=== PATIENT | female | born 1945 | race Two or more races ===

== ENCOUNTER 2022-02-19 17:39 | Inpatient (IN) | payer OTHER ==
[~2022-02-19] VITALS: Ht 160 cm; Wt 108.7 kg
[2022-02-19 19:09] LABS: Basophils # (auto) 0.1 10 ^3/uL (0-0.2); Basophils % (auto) 0.7 % (0.0-2.0); Eosinophils # (auto) 0.1 10 ^3/uL (0-0.8); Eosinophils % (auto) 0.3 % (0.0-7.0); Hematocrit 45.2 % (36.0-46.0); Hemoglobin 14.7 g/dL (12.2-16.2); Lymphocytes # (auto) 2.4 10 ^3/uL (0.4-5.4); Lymphocytes % (auto) 14.8 % (10.0-50.0); Mean Corpuscular Hemoglobin 32.4 pg (28.0-32.0); Mean Corpuscular Hgb Conc. 32.5 g/dL (32.0-36.0); Mean Corpuscular Volume 99.5 fL (80.0-100.0); Monocytes # (auto) 1.4 10 ^3/uL (0-1.3); Monocytes % (auto) 8.6 % (0.0-12.0); Neutrophils # (auto) 12.3 10 ^3/uL (1.6-8.6); Neutrophils % (auto) 75.6 % (37.0-80.0); Red Blood Cells 4.54 10^6/uL (4.0-5.20); Red Cell Distribution Width 15.1 % (11.8-14.3); White Blood Cell 16.3 10^3/uL (4.4-10.8)
[2022-02-19 19:26] LABS: Albumin 3.1 g/dL (3.4-5.0); BUN/Creatinine Ratio 11.4; Calcium 8.5 mg/dL (8.5-10.1); Potassium 3.7 mmol/L (3.5-5.1)
[2022-02-19 19:29] LABS: Bilirubin, Total 1.6 mg/dL (0.2-1.0); Total Protein 6.4 g/dL (6.4-8.2)
[2022-02-19 19:56] LABS: Urine Bacteria FEW /hpf (None Seen); Urine Blood Negative /uL (Negative); Urine Mucus FEW (None Seen); Urine Specific Gravity 1.037 (1.001-1.035); Urine WBC 10 /hpf (0 - 5)
[2022-02-19] MEDS ORDERED: ONDANSETRON HCL 4 MG/2 ML VIAL IV ONE (20:15)
[2022-02-19] MEDS ORDERED: MORPHINE SULFATE 4 MG/ML SYR/VIAL IV ONE (20:15)
[2022-02-19] MEDS ORDERED: PANTOPRAZOLE 40 MG/10 ML VIAL INJ IV ONE (20:15)
[2022-02-19] MEDS ORDERED: SODIUM CHLORIDE 0.9% 500 ML IVB ONE (20:15)
[2022-02-19 20:54] LABS: Amylase 19 U/L (25-115); Lipase 64 U/L (73-393)
[2022-02-19 21:00] VITALS: BP 115/63
[2022-02-19] MEDS ORDERED: PIPERACILLIN-TAZOB 3.375GM 100 ML IV ONE (21:15)
[2022-02-20] MEDS ORDERED: SOD CHL 0.45% 1,000 ML IV ONE
[2022-02-20] MEDS ORDERED: ONDANSETRON HCL 4 MG/2 ML VIAL IV PRN
[2022-02-20] MEDS ORDERED: MORPHINE SULFATE INJ 2 MG/ml SYRG IV PRN ×2
[2022-02-20] MEDS ORDERED: NITROGLYCERIN 0.4 MG SL TAB SL PRN
[2022-02-20] MEDS: ACCU-CHEK COMFORT CURVE STRIP VI SCH ×4 (00:40→17:30)
[2022-02-20] MEDS: InsuLIN REG 1unit/0.01ml Soln (100units/ml) SC SCH ×4 (00:40→18:00)
[2022-02-20 04:26] VITALS: BP 128/68
[2022-02-20 04:52] LABS: Basophils # (auto) 0.1 10 ^3/uL (0-0.2); Basophils % (auto) 0.7 % (0.0-2.0); Eosinophils # (auto) 0.2 10 ^3/uL (0-0.8); Eosinophils % (auto) 1.5 % (0.0-7.0); Hematocrit 44.7 % (36.0-46.0); Hemoglobin 14.7 g/dL (12.2-16.2); Lymphocytes # (auto) 1.7 10 ^3/uL (0.4-5.4); Lymphocytes % (auto) 13.6 % (10.0-50.0); Mean Corpuscular Hemoglobin 32.9 pg (28.0-32.0); Mean Corpuscular Hgb Conc. 32.8 g/dL (32.0-36.0); Mean Corpuscular Volume 100.3 fL (80.0-100.0); Monocytes % (auto) 8.3 % (0.0-12.0); Neutrophils # (auto) 9.2 10 ^3/uL (1.6-8.6); Neutrophils % (auto) 75.9 % (37.0-80.0); Nucleated Red Blood Cells % 0.6 %; Red Blood Cells 4.45 10^6/uL (4.0-5.20); Red Cell Distribution Width 15.2 % (11.8-14.3); White Blood Cell 12.1 10^3/uL (4.4-10.8)
[2022-02-20 05:07] LABS: INR 1.07 (0.9-1.15)
[2022-02-20 05:15] LABS: Albumin 3.2 g/dL (3.4-5.0); Calcium 8.4 mg/dL (8.5-10.1); Potassium 3.8 mmol/L (3.5-5.1)
[2022-02-20 05:19] LABS: BUN/Creatinine Ratio 14.3; Bilirubin, Total 2.2 mg/dL (0.2-1.0)
[2022-02-20] MEDS: IPRATROPIUM BROM 0.5 MG/2.5ML INH SOL NEB SCH ×3 (06:00→19:31)
[2022-02-20] MEDS: ALBUTEROL SULF 2.5 MG/0.5ML(0.5%) NEB SOLN NEB SCH ×3 (06:00→19:31)
[2022-02-20] MEDS: metroNIDAZOLE 500MG/100ML 100 ML IV SCH ×3 (06:21→21:35)
[2022-02-20] MEDS ORDERED: DEXTROSE (50%) 50ML SYRG IV PRN ×2 (09:45)
[2022-02-20] MEDS: SODIUM CHLORIDE 0.9% 1,000 ML IV SCH ×2 (12:03→18:05)
[2022-02-20] MEDS: CIPROFLOXACIN 400MG/200ML 200 ML IV SCH (12:04)
[2022-02-20] MEDS: PANTOPRAZOLE 40 MG/10 ML VIAL INJ IV SCH (12:04)
[2022-02-20] MEDS ORDERED: BACL10TA PO (16:50)
[2022-02-20] MEDS ORDERED: HYDR-4611 (16:50)
[2022-02-20] MEDS ORDERED: METF-869 PO (16:50)
[2022-02-20] MEDS ORDERED: LIDO4CRE22 TOP (16:50)
[2022-02-20] MEDS ORDERED: GLUC-105 (16:50)
[2022-02-20] MEDS ORDERED: POTA20TA24 (16:50)
[2022-02-20] MEDS ORDERED: ZOLP5TAB5 PO (16:50)
[2022-02-20] MEDS ORDERED: SPIR25TA8 PO (16:50)
[2022-02-20] MEDS ORDERED: OMEP-445 (16:50)
[2022-02-20 17:00] VITALS: BP 129/63
[2022-02-20] MEDS: D5W/SOD CHL 0.45% 1,000 ML IV SCH (17:45)
[2022-02-20] MEDS ORDERED: METOPROLOL TARTRATE 25 MG TAB PO ONE (21:15)
[2022-02-21] MEDS: IPRATROPIUM BROM 0.5 MG/2.5ML INH SOL NEB SCH ×4 (00:04→18:50)
[2022-02-21] MEDS: ALBUTEROL SULF 2.5 MG/0.5ML(0.5%) NEB SOLN NEB SCH ×4 (00:04→18:50)
[2022-02-21] MEDS: ACCU-CHEK COMFORT CURVE STRIP VI SCH ×4 (00:14→18:45)
[2022-02-21 05:00] VITALS: BP 98/55
[2022-02-21] MEDS: InsuLIN REG 1unit/0.01ml Soln (100units/ml) SC SCH ×4 (05:12→18:45)
[2022-02-21] MEDS: metroNIDAZOLE 500MG/100ML 100 ML IV SCH ×3 (05:12→22:26)
[2022-02-21 06:53] LABS: Basophils # (auto) 0 10 ^3/uL (0-0.2); Basophils % (auto) 0.5 % (0.0-2.0); Eosinophils # (auto) 0.2 10 ^3/uL (0-0.8); Eosinophils % (auto) 2.8 % (0.0-7.0); Hematocrit 39.4 % (36.0-46.0); Hemoglobin 12.7 g/dL (12.2-16.2); Lymphocytes # (auto) 1.4 10 ^3/uL (0.4-5.4); Lymphocytes % (auto) 18.8 % (10.0-50.0); Mean Corpuscular Hemoglobin 32.1 pg (28.0-32.0); Mean Corpuscular Hgb Conc. 32.1 g/dL (32.0-36.0); Mean Corpuscular Volume 99.8 fL (80.0-100.0); Monocytes # (auto) 0.8 10 ^3/uL (0-1.3); Monocytes % (auto) 10.6 % (0.0-12.0); Neutrophils % (auto) 67.3 % (37.0-80.0); Nucleated Red Blood Cells % 0.3 %; Red Blood Cells 3.95 10^6/uL (4.0-5.20); Red Cell Distribution Width 15.1 % (11.8-14.3); White Blood Cell 7.4 10^3/uL (4.4-10.8)
[2022-02-21 07:06] LABS: Albumin 2.4 g/dL (3.4-5.0); Calcium 7.9 mg/dL (8.5-10.1)
[2022-02-21 07:10] LABS: BUN/Creatinine Ratio 15.5; Bilirubin, Total 0.9 mg/dL (0.2-1.0); Total Protein 4.7 g/dL (6.4-8.2)
[2022-02-21] MEDS: D5W/SOD CHL 0.45% 1,000 ML IV SCH (07:30)
[2022-02-21 08:30] VITALS: BP 125/67
[2022-02-21 09:00] VITALS: BP 125/67
[2022-02-21] MEDS: CIPROFLOXACIN 400MG/200ML 200 ML IV SCH (09:13)
[2022-02-21] MEDS: PANTOPRAZOLE 40 MG/10 ML VIAL INJ IV SCH (09:21)
[2022-02-21] MEDS ORDERED: ONDANSETRON HCL 4 MG/2 ML VIAL ONE (10:05)
[2022-02-21] MEDS ORDERED: fentaNYL CITRATE 100 MCG/2 ML VL ONE (10:05)
[2022-02-21] MEDS ORDERED: DexAMETHasone SOD PHOS 10MG/1ML VIAL INJ ONE (10:05)
[2022-02-21] MEDS ORDERED: GLYCOPYRROLATE 0.2 MG/ML 1ML VIAL ONE (10:05)
[2022-02-21] MEDS ORDERED: ROCURONIUM 10MG/ML 10ML VIAL IV ONE (10:05)
[2022-02-21] MEDS ORDERED: SODIUM CHLORIDE LOCK 20 ML ONE (10:05)
[2022-02-21] MEDS ORDERED: MIDAZOLAM HCL 2MG/2ML 2ml VIAL (1mg/ml) ONE (10:05)
[2022-02-21] MEDS ORDERED: NEOSTIGMINE 1 MG/ML INJ (10mg/10ML VIAL) ONE (10:05)
[2022-02-21] MEDS ORDERED: MEPERIDINE HCL (50 MG/ML) 1 ML VIAL ONE (10:05)
[2022-02-21] MEDS: BUPIVACAINE HCL 0.25% P/F 10 ML VIAL ONE ×2 (10:25→11:20)
[2022-02-21] MEDS ORDERED: METOCLOPRAMIDE HCL 5MG/ml INJ 2ml VIAL IV PRN (10:45)
[2022-02-21] MEDS ORDERED: ACCU-CHEK COMFORT CURVE STRIP VI ONE (10:45)
[2022-02-21] MEDS ORDERED: HYDROmorphone HCL 2 MG/ML VL/or syr IV PRN (10:45)
[2022-02-21] MEDS ORDERED: MORPHINE SULFATE 4 MG/ML SYR/VIAL IV PRN (10:45)
[2022-02-21] MEDS ORDERED: SUGAMMADEX 200mg/2ml Vial (100MG/ML) IV ONE (11:38)
[2022-02-21] MEDS ORDERED: ONDANSETRON HCL 4 MG/2 ML VIAL IV PRN (11:45)
[2022-02-21] MEDS: HYDROmorphone HCL 2 MG/ML VL/or syr IV PRN ×5 (12:11→23:09)
[2022-02-21] MEDS: D5W/SOD CHL 0.45%/KCL 20MEQ 1,000 ML IV SCH (14:49)
[2022-02-21] MEDS ORDERED: METR500T PO (16:01)
[2022-02-21] MEDS ORDERED: LEVO500T31 PO (16:01)
[2022-02-21] MEDS ORDERED: hydrALAZINE HCL 20 MG/ML VL IV PRN (16:15)
[2022-02-21 16:38] VITALS: BP 114/63
[2022-02-21] MEDS: PIPERACILLIN-TAZOB 3.375GM 100 ML IV SCH ×2 (19:09→23:10)
[2022-02-21 22:36] VITALS: BP 125/54
[2022-02-22] VITALS (7 sets, daily range): BP systolic 112–139; BP diastolic 52–71
[2022-02-22] MEDS: InsuLIN REG 1unit/0.01ml Soln (100units/ml) SC SCH ×5 (00:30→23:57)
[2022-02-22] MEDS: ACCU-CHEK COMFORT CURVE STRIP VI SCH ×5 (00:30→23:57)
[2022-02-22] MEDS: ALBUTEROL SULF 2.5 MG/0.5ML(0.5%) NEB SOLN NEB SCH ×4 (00:33→18:59)
[2022-02-22] MEDS: IPRATROPIUM BROM 0.5 MG/2.5ML INH SOL NEB SCH ×4 (00:33→18:59)
[2022-02-22] MEDS: D5W/SOD CHL 0.45%/KCL 20MEQ 1,000 ML IV SCH ×4 (04:11→18:19)
[2022-02-22] MEDS: PIPERACILLIN-TAZOB 3.375GM 100 ML IV SCH ×4 (04:11→23:55)
[2022-02-22 05:58] LABS: Basophils # (auto) 0 10 ^3/uL (0-0.2); Basophils % (auto) 0.6 % (0.0-2.0); Eosinophils # (auto) 0 10 ^3/uL (0-0.8); Hematocrit 38.3 % (36.0-46.0); Lymphocytes # (auto) 0.5 10 ^3/uL (0.4-5.4); Lymphocytes % (auto) 9.2 % (10.0-50.0); Mean Corpuscular Hemoglobin 33.6 pg (28.0-32.0); Mean Corpuscular Volume 98.8 fL (80.0-100.0); Monocytes # (auto) 0.3 10 ^3/uL (0-1.3); Monocytes % (auto) 5.1 % (0.0-12.0); Neutrophils # (auto) 4.9 10 ^3/uL (1.6-8.6); Neutrophils % (auto) 85.1 % (37.0-80.0); Nucleated Red Blood Cells % 0.1 %; Red Blood Cells 3.88 10^6/uL (4.0-5.20); White Blood Cell 5.7 10^3/uL (4.4-10.8)
[2022-02-22 06:12] LABS: Calcium 8.3 mg/dL (8.5-10.1); Potassium 4.4 mmol/L (3.5-5.1)
[2022-02-22 06:16] LABS: BUN/Creatinine Ratio 12.9; Bilirubin, Total 0.6 mg/dL (0.2-1.0)
[2022-02-22] MEDS: metroNIDAZOLE 500MG/100ML 100 ML IV SCH ×2 (06:21→12:30)
[2022-02-22] MEDS: ACETAMINOPHEN/CODEINE#3 (300/30mg) TAB PO PRN (06:31)
[2022-02-22] MEDS: PANTOPRAZOLE 40 MG/10 ML VIAL INJ IV SCH (09:33)
[2022-02-22] MEDS ORDERED: CEFTRIAXONE SODIUM 2 GM in D5W 5% 50 ML IV SCH (10:00)
[2022-02-23] MEDS: ALBUTEROL SULF 2.5 MG/0.5ML(0.5%) NEB SOLN NEB SCH ×2 (00:24→07:29)
[2022-02-23] MEDS: IPRATROPIUM BROM 0.5 MG/2.5ML INH SOL NEB SCH ×2 (00:24→07:29)
[2022-02-23] MEDS: ACETAMINOPHEN/CODEINE#3 (300/30mg) TAB PO PRN (03:17)
[2022-02-23 04:22] LABS: Basophils # (auto) 0 10 ^3/uL (0-0.2); Basophils % (auto) 0.3 % (0.0-2.0); Eosinophils # (auto) 0 10 ^3/uL (0-0.8); Eosinophils % (auto) 0.1 % (0.0-7.0); Hematocrit 38.6 % (36.0-46.0); Hemoglobin 12.9 g/dL (12.2-16.2); Lymphocytes # (auto) 1.2 10 ^3/uL (0.4-5.4); Lymphocytes % (auto) 15.2 % (10.0-50.0); Mean Corpuscular Hgb Conc. 33.3 g/dL (32.0-36.0); Mean Corpuscular Volume 99.1 fL (80.0-100.0); Monocytes # (auto) 0.8 10 ^3/uL (0-1.3); Monocytes % (auto) 9.6 % (0.0-12.0); Neutrophils # (auto) 5.9 10 ^3/uL (1.6-8.6); Neutrophils % (auto) 74.8 % (37.0-80.0); Nucleated Red Blood Cells % 0.1 %; Red Cell Distribution Width 14.9 % (11.8-14.3); White Blood Cell 7.9 10^3/uL (4.4-10.8)
[2022-02-23] MEDS: PIPERACILLIN-TAZOB 3.375GM 100 ML IV SCH ×2 (04:59→10:26)
[2022-02-23] MEDS: D5W/SOD CHL 0.45%/KCL 20MEQ 1,000 ML IV SCH (05:15)
[2022-02-23 05:35] VITALS: BP 151/75
[2022-02-23] MEDS: InsuLIN REG 1unit/0.01ml Soln (100units/ml) SC SCH ×2 (06:50→12:00)
[2022-02-23] MEDS: ACCU-CHEK COMFORT CURVE STRIP VI SCH ×2 (06:51→12:20)
[2022-02-23 07:52] VITALS: BP 137/74
[2022-02-23 08:56] VITALS: BP_SYST 127; BP_SYST 137; BP_DIAS 61; BP_DIAS 74
[2022-02-23] MEDS: PANTOPRAZOLE 40 MG/10 ML VIAL INJ IV SCH (10:26)
[2022-02-23 11:08] VITALS: BP 137/74
== END 2022-02-23 12:28 | disposition home health service (06) | DRG 418 ==
LOC: ER 17:39 → OVERFLOW 02-20 00:01 → WEST WING 02-20 16:32 → OBSVTOIN 02-21 19:51
PROVIDERS: ADMIT Internal Medicine; ATTEND Internal Medicine
PROC: 05HF33Z Insertion of Infusion Device into Left Cephalic Vein, Percutaneous Approach (ICD-10-PCS; 2022-02-21)
PROC: B54NZZA Ultrasonography of Left Upper Extremity Veins, Guidance (ICD-10-PCS; 2022-02-21)
PROC: 0FT44ZZ Resection of Gallbladder, Percutaneous Endoscopic Approach (ICD-10-PCS; principal; 2022-02-21 10:48)
DX: K80.62 Calculus of gallbladder and bile duct with acute cholecystitis without obstruction (principal); E11.52 Type 2 diabetes mellitus with diabetic peripheral angiopathy with gangrene; Z68.41 Body mass index [BMI] 40.0-44.9, adult; N39.0 Urinary tract infection, site not specified; D72.829 Elevated white blood cell count, unspecified; E66.9 Obesity, unspecified; Z20.822 Contact with and (suspected) exposure to COVID-19; J44.9 Chronic obstructive pulmonary disease, unspecified; I11.0 Hypertensive heart disease with heart failure; I50.9 Heart failure, unspecified; E78.5 Hyperlipidemia, unspecified; E11.9 Type 2 diabetes mellitus without complications; Z85.3 Personal history of malignant neoplasm of breast; I25.2 Old myocardial infarction
CPT/HCPCS: 36415; 71045; 74181; 76705; 80048; 80053; 82247; 82962; 85025; 85610; 86850; 86900; 86901; 87086; 93005; 93306; 94640; 96365; 96375; C9113; G0378; J0696; J1100; J1815; J2250; J2405; J2543; J3490; J7060

== ENCOUNTER → 2023-05-30 | Outpatient (CLI) | payer OTHER ==
[~2023-05-30] MED LIST: ALBUTEROL SULF 2.5 MG/0.5ML(0.5%) NEB SOLN ONE; BACL10TA PO; GLUC-105; HYDR-4611; LEVO500T31 PO; LIDO4CRE22 TOP; METF-869 PO; METR500T PO; OMEP-445; POTA20TA24; SPIR25TA8 PO; ZOLP5TAB5 PO
== END | disposition home or self-care (01) ==
LOC: RT 08:44
PROVIDERS: ATTEND Internal Medicine Pulmonary Disease
DX: J44.9 Chronic obstructive pulmonary disease, unspecified (principal); R06.09 Other forms of dyspnea
CPT/HCPCS: 94060; 94727; 94729